=== PATIENT | female | born 1950 | race Native Hawaiian/Other Pacific Islander ===

== ENCOUNTER 2019-09-18 11:03 | Emergency (ER) | payer OTHER, MEDICARE ==
[~2019-09-18] VITALS: Ht 157.5 cm; Wt 74.4 kg
[2019-09-18 14:00] VITALS: BP 126/75; TEMP 98.5
== END 2019-09-18 14:00 | disposition home or self-care (01) ==
LOC: ED 11:03
DX: J20.9 Acute bronchitis, unspecified (principal)
CPT/HCPCS: 96372; 99283; J2930

== ENCOUNTER 2019-10-25 12:14 | Outpatient (CLI) | payer OTHER, MEDICARE | END 2019-10-25 21:13 | disposition home or self-care (01) | LOC: RAD 12:14 | DX: M79.605 Pain in left leg (principal); Z86.718 Personal history of other venous thrombosis and embolism ==

== ENCOUNTER 2020-02-02 10:00 | Outpatient (CLI) | payer OTHER, MEDICARE | END 2020-02-02 21:47 | disposition home or self-care (01) | LOC: LAB 10:00 | DX: I82.411 Acute embolism and thrombosis of right femoral vein (principal) | CPT/HCPCS: 36415; 81241; 85300; 85301; 85305; 85307; 86147 ==

== ENCOUNTER 2020-02-05 15:24 | Outpatient (CLI) | payer OTHER, MEDICARE | END 2020-02-05 19:28 | disposition home or self-care (01) | LOC: LABW 15:24 | DX: Z01.818 Encounter for other preprocedural examination (principal); Z51.81 Encounter for therapeutic drug level monitoring | CPT/HCPCS: 36415; 85730 ==

== ENCOUNTER 2020-04-23 08:51 | Outpatient (CLI) | payer OTHER, MEDICARE | END 2020-04-23 19:05 | disposition home or self-care (01) | LOC: CT 08:51 | DX: M25.552 Pain in left hip (principal); Z96.642 Presence of left artificial hip joint; T84.031A Mechanical loosening of internal left hip prosthetic joint, initial encounter; M70.62 Trochanteric bursitis, left hip ==

== ENCOUNTER 2020-05-28 12:48 | Emergency (ER) | payer OTHER, MEDICARE ==
[~2020-05-28] VITALS: Ht 157.5 cm; Wt 74.4 kg
[2020-05-28 12:48] VITALS: TEMP 98.9
[2020-05-28] MEDS ORDERED: LYSINE1000 MG PO (13:12)
[2020-05-28] MEDS ORDERED: XARELTO20 MG PO (13:12)
[2020-05-28] MEDS ORDERED: D325 MCG PO (13:13)
[2020-05-28] MEDS ORDERED: B12 FAST DIS5000 MCG PO (13:13)
[2020-05-28] MEDS ORDERED: GABA300C2 PO (13:14)
[2020-05-28] MEDS ORDERED: OMEPRAZOLE40 MG PO (13:16)
[2020-05-28] MEDS ORDERED: TRAMADOL HYDROC50 MG PO (13:17)
[2020-05-28] MEDS ORDERED: DICLOFENAC SODIUM1 % TD (13:18)
[2020-05-28 13:58] LABS: PLATELET COUNT 276 K/uL (152-353)
[2020-05-28 14:10] LABS: POTASSIUM 4.2 mmol/L (3.6-5.2)
[2020-05-28 14:17] LABS: PARTIAL THROMBOPLASTIN TIME 31.7 SECONDS (24.5-33.6)
[2020-05-28 14:46] VITALS: BP 116/70
== END 2020-05-28 16:17 | disposition home or self-care (01) ==
LOC: ED 12:48
PROVIDERS: Family Medicine
DX: M25.461 Effusion, right knee (principal); Z96.651 Presence of right artificial knee joint; Z79.899 Other long term (current) drug therapy; Z51.81 Encounter for therapeutic drug level monitoring
CPT/HCPCS: 80053; 81000; 85027; 85379; 85610; 85730; 96372; 99283; 99284; J1885

== ENCOUNTER 2020-07-29 11:45 | Outpatient (CLI) | payer OTHER, MEDICARE ==
[~2020-07-29 11:45] MED LIST: B12 FAST DIS5000 MCG PO; D325 MCG PO; DICLOFENAC SODIUM1 % TD; GABA300C2 PO; LYSINE1000 MG PO; OMEPRAZOLE40 MG PO; TRAMADOL HYDROC50 MG PO; XARELTO20 MG PO
== END 2020-07-29 20:31 | disposition home or self-care (01) ==
LOC: RAD 11:45
DX: M06.4 Inflammatory polyarthropathy (principal)

== ENCOUNTER 2020-08-08 08:55 | Outpatient (CLI) | payer OTHER, MEDICARE | END 2020-08-08 20:18 | disposition home or self-care (01) | LOC: RAD 08:55 | DX: M85.89 Other specified disorders of bone density and structure, multiple sites (principal) ==

== ENCOUNTER 2021-01-07 13:30 | Outpatient (CLI) | payer OTHER, MEDICARE ==
[2021-01-07 14:06] LABS: PLATELET COUNT 373 K/uL (152-353)
[2021-01-07 14:26] LABS: POTASSIUM 3.8 mmol/L (3.6-5.2)
== END 2021-01-07 19:19 | disposition home or self-care (01) ==
LOC: LABW 13:30
PROVIDERS: ATTEND Nurse Practitioner
DX: R10.84 Generalized abdominal pain (principal)
CPT/HCPCS: 36415; 80053; 85027; Q9963

== ENCOUNTER 2021-02-14 09:23 | Outpatient (CLI) | payer OTHER, MEDICARE | END 2021-02-14 22:39 | disposition home or self-care (01) | LOC: LABW 09:23 | PROVIDERS: ATTEND Internal Medicine Gastroenterology | DX: K59.1 Functional diarrhea (principal); K92.1 Melena | CPT/HCPCS: 82272; 82705; 83630; 87015; 87045; 87324; 87328; 87329; 87449; 87899 ==

== ENCOUNTER 2021-04-02 14:42 | Outpatient (CLI) | payer OTHER, MEDICARE ==
[2021-04-09 14:42] LABS: PLATELET COUNT 347 K/uL (152-353)
[2021-04-09 14:43] LABS: POTASSIUM 3.7 mmol/L (3.6-5.2)
== END 2021-04-02 23:59 | disposition home or self-care (01) ==
LOC: LABW 14:42
PROVIDERS: ATTEND Internal Medicine Gastroenterology
DX: K51.80 Other ulcerative colitis without complications (principal)
CPT/HCPCS: 36415; 80053; 83516; 85027; 85652; 86140; 86255; 86671

== ENCOUNTER 2021-06-30 11:52 | Outpatient (CLI) | payer OTHER, MEDICARE ==
[2021-06-30 12:03] LABS: PLATELET COUNT 294 K/uL (152-353)
[2021-06-30 13:16] LABS: POTASSIUM 4.1 mmol/L (3.6-5.2)
== END 2021-06-30 20:05 | disposition home or self-care (01) ==
LOC: LABW 11:52
PROVIDERS: ATTEND Internal Medicine Gastroenterology
DX: K51.80 Other ulcerative colitis without complications (principal)
CPT/HCPCS: 36415; 80053; 85027; 85652; 86140

== ENCOUNTER 2021-12-22 12:50 | Outpatient (CLI) | payer OTHER, MEDICARE ==
[2021-12-22 13:31] LABS: PLATELET COUNT 245 K/uL (152-353)
[2021-12-22 13:42] LABS: POTASSIUM 3.9 mmol/L (3.6-5.2)
== END 2021-12-22 19:12 | disposition home or self-care (01) ==
LOC: LABW 12:50
PROVIDERS: ATTEND Internal Medicine Gastroenterology
DX: K51.80 Other ulcerative colitis without complications (principal)
CPT/HCPCS: 36415; 80053; 85027; 85652; 86140

== ENCOUNTER 2022-02-12 08:07 | Outpatient (CLI) | payer OTHER, MEDICARE | END 2022-02-12 19:01 | disposition home or self-care (01) | LOC: CT 08:07 | PROVIDERS: ATTEND Internal Medicine | DX: R10.32 Left lower quadrant pain (principal); R22.9 Localized swelling, mass and lump, unspecified | CPT/HCPCS: 36415; 82565; 84520; Q9963 ==

== ENCOUNTER 2022-06-23 10:55 | Outpatient (CLI) | payer OTHER, MEDICARE ==
[2022-06-23 11:10] LABS: PLATELET COUNT 215 K/uL (152-353)
== END 2022-06-23 20:22 | disposition home or self-care (01) ==
LOC: LABW 10:55
PROVIDERS: ATTEND Internal Medicine Gastroenterology
DX: K51.80 Other ulcerative colitis without complications (principal)
CPT/HCPCS: 36415; 80053; 85027; 85652; 86140

== ENCOUNTER 2022-11-02 16:52 | Inpatient (IN) | payer OTHER | END 2022-11-04 08:55 | disposition still patient (30) | LOC: PAVB 16:52 | PROVIDERS: ADMIT Family Medicine; ATTEND Family Medicine | DX: Z47.89 Encounter for other orthopedic aftercare (principal); Z96.651 Presence of right artificial knee joint; M17.11 Unilateral primary osteoarthritis, right knee; M25.561 Pain in right knee; M62.81 Muscle weakness (generalized); R26.2 Difficulty in walking, not elsewhere classified; Z74.1 Need for assistance with personal care | CPT/HCPCS: 87077; 87081; 87186 ==

== ENCOUNTER → 2022-12-09 | Outpatient (CLI) | payer OTHER, MEDICARE | LOC: US 10:34 | PROVIDERS: ATTEND Internal Medicine | DX: R60.0 Localized edema (principal); M79.604 Pain in right leg; Z96.651 Presence of right artificial knee joint ==

== ENCOUNTER 2023-01-26 10:50 | Outpatient (CLI) | payer OTHER, MEDICARE ==
[2023-01-26 11:14] LABS: PLATELET COUNT 317 K/uL (152-353)
[2023-01-26 11:42] LABS: POTASSIUM 4.2 mmol/L (3.6-5.2)
== END 2023-01-26 18:58 | disposition home or self-care (01) ==
LOC: LABW 10:50
PROVIDERS: ATTEND Internal Medicine Gastroenterology
DX: K51.80 Other ulcerative colitis without complications (principal)
CPT/HCPCS: 36415; 80053; 85027; 85652

== ENCOUNTER 2023-07-08 12:23 | Outpatient (CLI) | payer OTHER, MEDICARE | END 2023-07-08 19:15 | disposition home or self-care (01) | LOC: MRI 12:23 → LABW 12:23 → MRI 13:00 | PROVIDERS: ATTEND Psychiatry & Neurology Neurology | DX: R41.82 Altered mental status, unspecified (principal); G43.019 Migraine without aura, intractable, without status migrainosus; M54.81 Occipital neuralgia | CPT/HCPCS: 36415; 82565; 82607; 82746; 84443; 84520; 85652; 86038; A9576 ==